=== PATIENT | female | born 1985 | race Caucasian/White ===

== ENCOUNTER 2018-07-07 13:36 | Observation (INO) | payer OTHER ==
--- OUTSIDE RECORDS SUMMARY | 2018-07-07 13:42 | XMS REPORT ---
:1985 [facility] Address [address] [place] [address] Dr. Treviño [address] [place] [id number] Care Team Providers Name Role Phone Unavailable Unavailable Unavailable Problems This patient has no known problems. Allergies, Adverse Reactions, Alerts This patient has no known allergies or adverse reactions. Medications This patient has no known medications.
[2018-07-07 15:12] LABS: Urine Blood TRACE (NEG); Urine Glucose NEGATIVE (NEG); Urine Protein NEGATIVE (NEG); Urine Specific Gravity 1.025 (1.005-1.030)
[2018-07-07 16:07] LABS: Absolute Lymphocytes (CBC) 3.2 K/uL (0.7-4.9); Absolute Monocytes 0.8 K/uL (0.1-1.3); Absolute Neutrophil 5.7 K/uL (1.8-8.0); Basophils % 0.9 % (0-1.3); Hematocrit 46.9 % (36.0-45.0); Lymphocytes % 31.4 % (15.3-44.8); MPV 10.4 fL (7.6-11.3); Monocytes % 7.9 % (3.3-12.3); RBC Red Blood Cell Count 5.13 M/uL (3.86-4.86)
[2018-07-07] MEDS ORDERED: ONDANSETRON 4 MG/2 ML VIAL ONE (16:17)
[2018-07-07] MEDS ORDERED: MORPHINE 4 MG/ML SYR ONE ×3 (16:17→21:41)
[2018-07-07 16:22] LABS: ALT/SGPT 20 U/L (12-78); AST/SGOT 12 U/L (15-37); Albumin 3.8 g/dL (3.4-5.0); Alkaline Phosphatase 71 U/L (45-117); BUN Blood Urea Nitrogen 8 mg/dL (7-18); Bicarbonate 25 mmol/L (21-32); Bilirubin Direct < 0.1 mg/dL (0-0.2); Bilirubin Total 0.2 mg/dL (0.2-1.0); Glucose Level 84 mg/dL (74-106); Lipase 136 U/L (73-393); Potassium 3.9 mmol/L (3.5-5.1); Protein, Total 7.6 g/dL (6.4-8.2); Sodium Level 137 mmol/L (136-145)
--- NOTE | 2018-07-07 17:14 | RAD REPORT ---
EXAM DESCRIPTION: CT - Abdomen Pelvis W Contrast - 07/07/2018 4:42 pm CLINICAL HISTORY: Right-sided abdominal pain, right lower quadrant pain prior cholecystectomy COMPARISON: CT imaging December 2015 and October 2015 TECHNIQUE: Biphasic, helical CT imaging of the abdomen and pelvis was performed following 100 ml non -ionic IV contrast. No oral contrast administered. All CT scans are performed using dose optimization technique as appropriate and may include automated exposure control or mA/KV adjustment according to patient size. FINDINGS: No suspicious findings in the lung bases. The liver, spleen, and pancreas show no suspicious findings. Gallbladder is absent. No biliary tree d ilatation. Symmetric renal function is seen with no hydronephrosis or suspicious renal mass. No pyelonephritis o r acute parenchymal process. No bladder abnormalities. No adrenal abnormalities. No gastric dilatation, wall thickening or acute gastric finding. Patient has a minimal hiatal hernia. A few small bowel loops are prominent but no small bowel obstruction or mass identifiable. Small bow el enteritis is possible. Patient has a prominent, fatty ileocecal valve projecting into the lumen of the cecum. Terminal ileum extends 1-2 cm into the lumen. Findings at the Lugol's cecal valve are not substantially different back to 2016. Appendix is normal. No colitis or acute colon wall process andrew ntifiable. Patient has moderate stool volume in the transverse and left side colon. No free air, free fluid or inflammatory stranding. No hernia, mass or bulky lymphadenopathy. Uterus and right ovary show no suspicious findings. Left ovary contains a 3.3 centimeter cyst. No suspicious bony findings. IMPRESSION: No bowel obstruction, appendicitis, free air or surgically emergent finding. Prominent small bowel loops are present and the patient may have a nonspecific enteritis. Prominent fatty ileocecal valve projecting into the lumen of the cecum. There is probably laxity at t he ileocecal valve and the patient may have minimal or transient intussusception. Ileocecal valve findings are not considered emergent or obstructive. Pattern is not substantially dif ferent from comparison studies.
--- NOTE | 2018-07-07 18:48 | EDPHYS ---
Physician Documentation [facility] Name: Jo Stover Age: 33 yrs Sex: Female : 1985 Arrival Date: 07/07/2018 Time: 13:39 Bed 17 Private MD: Benito Bland ED Physician Arthur Huertas HPI: 07/08 08:26 This 33 yrs old Female presents to ER via Ambulatory with complaints of kdr Abdominal Pain, Bloody Stools. 08:26 The patient presents with abdominal pain right - lateral to umbilicus. Onset: The kdr symptoms/episode began/occurred yesterday. The symptoms do not radiate. Associated signs and symptoms: Pertinent positives: blood in stools, nausea, Pertinent negatives: constipation, dysuria, fever, headache, hematuria, palpitations, shortness of breath, vaginal discharge, vomiting, vomiting blood. The symptoms are described as achy, crampy, intermittent, sharp, stabbing. Modifying factors: The symptoms are alleviated by nothing, the symptoms are aggravated by walking. Severity of pain: At its worst the pain was moderate in the emergency department the pain has improved. The patient has not experienced similar symptoms in the past. The patient has not recently seen a physician. 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 - Social history:: Smoking status: Patient uses tobacco products, Patient/guardian denies using alcohol. - Ebola Screening: : Patient negative for fever greater than or equal to 101.5 degrees Fahrenheit, and additional compatible Ebola Virus Disease symptoms Patient denies exposure to infectious person Patient denies travel to an Ebola-affected area in the 21 days before illness onset. ROS: 07/08 08:26 Constitutional: Negative for fever, chills, and weight loss, Eyes: Negative for injury, kdr pain, redness, and discharge, Neck: Negative for injury, pain, and swelling, Cardiovascular: Negative for chest pain, palpitations, and edema, Respiratory: Negative for shortness of breath, cough, wheezing, and pleuritic chest pain, Back: Negative for injury and pain, : Negative for injury, bleeding, discharge, and swelling, MS/Extremity: Negative for injury and deformity, Skin: Negative for injury, rash, and discoloration, Neuro: Negative for headache, weakness, numbness, tingling, and seizure activity. Psych: Negative for depression, anxiety, suicide ideation, homicidal ideation, and hallucinations, Allergy/Immunology: Negative for hives, rash, and allergies, Endocrine: Negative for neck swelling, polydipsia, polyuria, polyphagia, and marked weight changes, Hematologic/Lymphatic: Negative for swollen nodes, abnormal bleeding, and unusual bruising. Abdomen/GI: Positive for abdominal pain, nausea, Negative for diarrhea, constipation, abdominal cramps, abdominal distension, anorexia, dysphagia, hematemesis, black/tarry stool, rectal pain, bowel incontinence, flatulence. Exam: 08:26 Constitutional: This is a well developed, well nourished patient who is awake, alert, kdr and in no acute distress. Head/Face: Normocephalic, atraumatic. Eyes: Pupils equal round and reactive to light, extra-ocular motions intact. Lids and lashes normal. Conjunctiva and sclera are non-icteric and not injected. Cornea within normal limits. Periorbital areas with no swelling, redness, or edema. Neck: Trachea midline, no thyromegaly or masses palpated, and no cervical lymphadenopathy. Supple, full range of motion without nuchal rigidity, or vertebral point tenderness. No Meningismus. Chest/axilla: Normal chest wall appearance and motion. Nontender with no deformity. No lesions are appreciated. Cardiovascular: Regular rate and rhythm with a normal S1 and S2. No gallops, murmurs, or rubs. Normal PMI, no JVD. No pulse deficits. Respiratory: Lungs have equal breath sounds bilaterally, clear to auscultation and percussion. No rales, rhonchi or wheezes noted. No increased work of breathing, no retractions or nasal flaring. Back: No spinal tenderness. No costovertebral tenderness. Full range of motion. 08:26 Abdomen/GI: Inspection: abdomen appears normal, Bowel sounds: active, Palpation: Rectal exam: Vital Signs: 07/07 13:51 BP 134 / 83; Pulse 89; Resp 18; Temp 97.0(TE); Pulse Ox 100% on R/A; Weight 90.72 kg; hj Height 5 ft. 7 in. (170.18 cm); Pain 8/10; 14:57 BP 146 / 105; Pulse 84; Resp 14; Pulse Ox 99% ; bp 16:43 BP 150 / 89; Pulse 75; Resp 14; Pulse Ox 99% ; bp 17:35 BP 128 / 94; Pulse 76; Resp 14; Pulse Ox 98% ; bp 18:42 BP 117 / 64; Pulse 71; Resp 14; Pulse Ox 98% ; bp 19:14 BP 133 / 89; Pulse 72; Resp 16 S; Pulse Ox 99% on R/A; jd3 20:19 BP 118 / 88; Pulse 64; Resp 16 S; Pulse Ox 98% on R/A; jd3 13:51 Body Mass Index 31.32 (90.72 kg, 170.18 cm) hj MDM: 18:47 Patient medically screened. kdr 07/08 08:26 Data reviewed: vital signs, nurses notes, lab test result(s), radiologic studies. kdr Counseling: I had a detailed discussion with the patient and/or guardian regarding: the historical points, exam findings, and any diagnostic results supporting the discharge/admit diagnosis, lab results, radiology results, the need for further work-up and treatment in the hospital. Physician consultation: Ignacio White MD and will see patient in inpatient room, later today. 07/07 15:01 Order name: Urine Dipstick--Ancillary (enter results); Complete Time: 17: 07/07 15:01 Order name: Urine --Ancillary (enter results); Complete Time: 17: 07/07 15:11 Order name: Basic Metabolic Panel; Complete Time: 17: kdr 07/07 15:11 Order name: CBC with Diff; Complete Time: 17: [facility] 07/07 15:11 Order name: Creatinine for Radiology; Complete Time: 17: kdr 07/07 15:11 Order name: Hepatic Function; Complete Time: 17: kdr 07/07 15:11 Order name: Lipase; Complete Time: 17: [facility] 07/07 15:25 Order name: CT Abd/Pelvis - W/Contrast; Complete Time: 18:04 kdr 07/07 13:54 Order name: Urine Dipstick-Ancillary (obtain specimen); Complete Time: 14:54 07/07 13:54 Order name: Urine Test (obtain specimen); Complete Time: 14:54 hj 07/07 15:11 Order name: IV Saline Lock; Complete Time: 15:48 kdr 07/07 15:11 Order name: Labs collected and sent; Complete Time: 15:48 kdr Administered Medications: 07/07 16:09 Drug: Zofran 4 mg Route: IVP; Site: right upper arm; jl7 16:44 Follow up: Response: Pain is decreased bp 16:13 Drug: morphine 4 mg Route: IVP; Site: right upper arm; jl7 16:44 Follow up: Response: Pain is decreased bp 17:02 Drug: morphine 4 mg Route: IVP; Site: right upper arm; bp 18:39 Follow up: Response: Pain is decreased bp 19:02 Drug: Flagyl 500 mg Route: PO; bp 20:21 Follow up: Response: No adverse reaction jd3 19:03 Drug: Cipro 500 mg Route: PO; bp 20:21 Follow up: Response: No adverse reaction jd3 19:03 Drug: NS 0.9% 1000 ml Route: IV; Rate: 1 bolus; Site: right upper arm; bp 20:21 Follow up: Response: No adverse reaction; IV Status: Completed infusion jd3 19:03 Drug: fentaNYL (PF) 50 mcg Route: IVP; Site: right upper arm; bp 20:21 Follow up: Response: No adverse reaction jd3 Disposition: 07/07/18 18:47 Hospitalization ordered by Dimas Massey for Observation. Preliminary diagnosis are Abdominal and pelvic pain, Enteritis: . - Bed requested for Telemetry/MedSurg (observation). - Status is Observation. jd3 - Condition is Fair. - Problem is new. - Symptoms have improved. UTI on Admission? No Signatures: Dispatcher [employer] EDMS Cortney Cerna RN RN Arthur Huertas MD MD kdr Joaquin, Henry, RN RN hj Leal, Jahala, RN RN jl7 Davies, Jonathon, RN RN jEdison Bustos RN RN bp Corrections: (The following items were deleted from the chart) 19:50 18:47 Hospitalization Ordered by Dimas Massey MD for Observation. Preliminary diagnosis mw is Abdominal and pelvic pain; Enteritis: . Bed requested for Telemetry/MedSurg (observation). Status is Observation. Condition is Fair. Problem is new. Symptoms have improved. UTI on Admission? No. kdr 20:40 19:50 07/07/2018 18:47 Hospitalization Ordered by Dimas Massey MD for Observation. jd3 Preliminary diagnosis is Abdominal and pelvic pain; Enteritis: . Bed requested for Telemetry/MedSurg (observation). Status is Observation. Condition is Fair. Problem is new. Symptoms have improved. UTI on Admission? No. mw
--- NOTE | 2018-07-07 18:48 | ER ---
Nurse's Notes 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 Transition of care: patient was not received from another setting of care. Onset of symptoms was July 07, 2018. Risk Assessment: Do you want to hurt yourself or someone else? Patient reports no desire to harm self or others. Initial Sepsis Screen: Does the patient meet any 2 criteria? No. Patient's initial sepsis screen is negative. Does the patient have a suspected source of infection? No. Patient's initial sepsis screen is negative. Care prior to arrival: None. 13:48 Method Of Arrival: Ambulatory 13:48 Acuity: EVA 3 hj Triage Assessment: 13:50 General: Appears in no apparent distress. uncomfortable, Behavior is calm, cooperative, hj appropriate for age. Pain: Complains of pain in abdomen. GI: Reports upper abdominal pain, nausea. 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 - Social history:: Smoking status: Patient uses tobacco products, Patient/guardian denies using alcohol. - Ebola Screening: : Patient negative for fever greater than or equal to 101.5 degrees Fahrenheit, and additional compatible Ebola Virus Disease symptoms Patient denies exposure to infectious person Patient denies travel to an Ebola-affected area in the 21 days before illness onset. Screenin:51 Abuse screen: Denies threats or abuse. Denies injuries from another. Nutritional hj screening: No deficits noted. Tuberculosis screening: No symptoms or risk factors identified. Fall Risk None identified. Assessment: 13:51 GI: Bowel sounds present X 4 quads. Abd is soft. hj 14:54 General: Appears in no apparent distress. comfortable, Behavior is cooperative, bp appropriate for age, anxious. Pain: Complains of pain in abdomen. Neuro: Level of Consciousness is awake, alert, obeys commands, Oriented to person, place, time, situation, Appropriate for age. Cardiovascular: No deficits noted. Respiratory: Airway is patent Respiratory effort is even, unlabored, Respiratory pattern is regular, symmetrical. GI: Abdomen is non-distended, Bowel sounds present X 4 quads. Abd is soft X 4 quads. : No signs and/or symptoms were reported regarding the genitourinary system. EENT: No deficits noted. Derm: No deficits noted. Musculoskeletal: Circulation, motion, and sensation intact. Range of motion: intact in all extremities. 16:30 Reassessment: PT TO CT VIA W/C WITH TECH. bp 17:35 Reassessment: ALL CURRENT STUDIES COMPLETED, DISPO PENDING. NO ACUTE S/S AT THIS TIME. bp 18:40 Reassessment: ALL CURRENT STUDIES COMPLETED, DISPO PENDING. bp 19:13 Reassessment: Patient appears in no apparent distress at this time. No changes from jd3 previously documented assessment. Patient and/or family updated on plan of care and expected duration. Pain level reassessed. Patient is alert, oriented x 3, equal unlabored respirations, skin warm/dry/pink. awaiting bed placement. 20:19 Reassessment: Patient appears in no apparent distress at this time. No changes from jd3 previously documented assessment. Patient and/or family updated on plan of care and expected duration. Pain level reassessed. Patient is alert, oriented x 3, equal unlabored respirations, skin warm/dry/pink. 20:39 Reassessment: Patient appears in no apparent distress at this time. Patient and/or jd3 family updated on plan of care and expected duration. Pain level reassessed. Patient is alert, oriented x 3, equal unlabored respirations, skin warm/dry/pink. 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 Vital Signs: 13:51 BP 134 / 83; Pulse 89; Resp 18; Temp 97.0(TE); Pulse Ox 100% on R/A; Weight 90.72 kg; hj Height 5 ft. 7 in. (170.18 cm); Pain 8/10; 14:57 BP 146 / 105; Pulse 84; Resp 14; Pulse Ox 99% ; bp 16:43 BP 150 / 89; Pulse 75; Resp 14; Pulse Ox 99% ; bp 17:35 BP 128 / 94; Pulse 76; Resp 14; Pulse Ox 98% ; bp 18:42 BP 117 / 64; Pulse 71; Resp 14; Pulse Ox 98% ; bp 19:14 BP 133 / 89; Pulse 72; Resp 16 S; Pulse Ox 99% on R/A; jd3 20:19 BP 118 / 88; Pulse 64; Resp 16 S; Pulse Ox 98% on R/A; jd3 13:51 Body Mass Index 31.32 (90.72 kg, 170.18 cm) hj ED Course: 13:39 Patient arrived in ED. mr 13:39 Benito Bland MD is Private Physician. mr 13:50 Triage completed. hj 13:51 Arm band placed on right wrist. hj 13:52 Patient has correct armband on for positive identification. Placed in gown. Bed in low hj position. Call light in reach. Side rails up X 1. 14:42 Arthur Huertas MD is Attending Physician. kdr 14:47 Edison Chao, KRISTIAN is Primary Nurse. bp 15:38 Radiology exam delayed due to lab results not completed at this time. (BUN/Creatinine). vm2 15:39 Radiology exam delayed due to test not completed at this time. vm2 15:41 Radiology exam delayed due to lab results not completed at this time. (BUN/Creatinine). vm2 15:48 Inserted saline lock: 20 gauge in right upper arm, using aseptic technique. Blood bp collected. 16:10 Radiology exam delayed due to lab results not completed at this time. (BUN/Creatinine). nj 16:[address] via wheelchair. sj 16:40 CT completed. Patient tolerated procedure well. Patient moved back from CT. nj 16:43 CT Abd/Pelvis - W/Contrast In Process Unspecified. EDMS 18:41 Dimas Massey MD is Hospitalizing Provider. kdr 20:20 No provider procedures requiring assistance completed. Patient admitted, IV remains in jd3 place. Administered Medications: 16:09 Drug: Zofran 4 mg Route: IVP; Site: right upper arm; jl7 16:44 Follow up: Response: Pain is decreased bp 16:13 Drug: morphine 4 mg Route: IVP; Site: right upper arm; jl7 16:44 Follow up: Response: Pain is decreased bp 17:02 Drug: morphine 4 mg Route: IVP; Site: right upper arm; bp 18:39 Follow up: Response: Pain is decreased bp 19:02 Drug: Flagyl 500 mg Route: PO; bp 20:21 Follow up: Response: No adverse reaction jd3 19:03 Drug: Cipro 500 mg Route: PO; bp 20:21 Follow up: Response: No adverse reaction jd3 19:03 Drug: NS 0.9% 1000 ml Route: IV; Rate: 1 bolus; Site: right upper arm; bp 20:21 Follow up: Response: No adverse reaction; IV Status: Completed infusion jd3 19:03 Drug: fentaNYL (PF) 50 mcg Route: IVP; Site: right upper arm; bp 20:21 Follow up: Response: No adverse reaction jd3 Outcome: 18:47 Decision to Hospitalize by Provider. kdr 20:20 Admitted to Med/surg accompanied by tech, via wheelchair, room 210, with chart, Report jd3 called to Hansel TOWNSEND 20:20 Condition: stable 20:20 Instructed on the need for admit, Demonstrated understanding of instructions. 20:40 Patient left the ED. jd3 Signatures: Dispatcher [employer] EDMS Arthur Huertas MD MD kdr Rivera, Ann Marie mr StovallMoira Henry, RN RN hj Jordan, Nathan nj Leal, Jahala, RN RN Sarah Bagley Marvin Hebert RN RN jd3 Peltier, Brian, RN RN bp Corrections: (The following items were deleted from the chart) 13:53 13:51 Pulse 89bpm; Resp 18bpm; Pulse Ox 100% RA; Temp 97.0F Temporal; 90.72 kg; Height hj 5 ft. 7 in.; BMI: 31.3; Pain 8/10; hj
[2018-07-07] MEDS ORDERED: metroNIDAZOLE 500 MG TABLET ONE (19:04)
[2018-07-07] MEDS ORDERED: CIPROFLOXACIN HCL 500 MG TAB ONE (19:04)
[2018-07-07] MEDS ORDERED: NA CHLORIDE 0.9% 1,000 ML ONE (19:05)
[2018-07-07] MEDS ORDERED: FENTANYL CITR 100 MCG/2 ML ONE (19:05)
[2018-07-07] MEDS ORDERED: MORPHINE 2 MG/ML SYR IV PRN (20:14)
[2018-07-07] MEDS: CIPROFLOXACIN 400mg IV 400 MG/200 ML BAG IV SCH (21:00)
[2018-07-07 21:09] VITALS: BMI 33.5
[2018-07-07] MEDS: D5 0.45 NS 1,000 ML IV SCH (21:15)
[2018-07-07] MEDS: ONDANSETRON 4 MG/2 ML VIAL IV PRN (21:35)
[2018-07-08] MEDS: ONDANSETRON 4 MG/2 ML VIAL IV PRN ×5 (02:05→17:54)
[2018-07-08] MEDS: METRONIDAZOLE 500mg IVPB 500 MG/100 ML BAG IV SCH ×3 (02:05→17:54)
[2018-07-08] MEDS ORDERED: MORPHINE 4 MG/ML SYR ONE ×2 (02:09→06:01)
[2018-07-08 05:49] LABS: Potassium 4.4 mmol/L (3.5-5.1)
[2018-07-08] MEDS: CIPROFLOXACIN 400mg IV 400 MG/200 ML BAG IV SCH ×2 (05:57→17:53)
[2018-07-08] MEDS: D5 0.45 NS 1,000 ML IV SCH ×4 (05:57→20:14)
[2018-07-08 06:01] LABS: Absolute Lymphocytes (CBC) 2.1 K/uL (0.7-4.9); Absolute Monocytes 0.6 K/uL (0.1-1.3); Absolute Neutrophil 3.7 K/uL (1.8-8.0); Basophils % 0.2 % (0-1.3); Eosinophils % 4.3 % (0-4.4); Hematocrit 41.8 % (36.0-45.0); Lymphocytes % 31.3 % (15.3-44.8); MPV 10.3 fL (7.6-11.3); Monocytes % 9.6 % (3.3-12.3); RBC Red Blood Cell Count 4.61 M/uL (3.86-4.86)
--- NOTE | 2018-07-08 09:42 | P.HP ---
Certification for Inpatient Patient admitted to: Inpatient With expected LOS: >2 Midnights Patient will require the following post-hospital care: None Practitioner: I am a practitioner with admitting privileges, knowledge of patient current condition, hospital course, and medical plan of care. Services: Services provided to patient in accordance with Admission requirements found in Title 42 Section 412.3 of the Code of Federal Regulations Patient History Date of Service: 07/07/18 Reason for admission: Abdominal pain and lower GI bleeding History of Present Illness: Patient is a 33-year-old female who has been in a normal state of health until she noted she had blood in her stools. She started having some nausea and vomiting as well. Her abdominal pain was really severe in the right lower quadrant and she noticed that her stools were bloody. She initially felt she had hemorrhoids, but since the pain was worsening she decided to come into the hospital for evaluation. In the emergency room she had a CT of the abdomen and pelvis with IV contrast which revealed an intussusception around the cecum. She was admitted to the hospital for further monitoring and evaluation for possible surgical intervention. Allergies No Known Allergies Allergy (Unverified 11/03/15 03:15) Home Medications: Citalopram [Celexa*] 20 mg PO DAILY 07/07/18 LORazepam [Ativan*] 1 mg PO BID PRN 07/07/18 Norethindrone AC-Eth Estradiol [Microgestin 21 1.5-30 Tab] 1 tab PO DAILY - Past Medical/Surgical History Has patient received pneumonia vaccine in the past: No Diabetic: No -: asthma -: anxiety -: c section -: cholecystectomy - Family History Father Medical History: Cancer Notes: pancreactic cancer, 2018 Mother Notes: hypothyroid - Social History Smoking Status: Current every day smoker Alcohol use: No CD- Drugs: No Caffeine use: Yes Place of Residence: Home Review of Systems 10-point ROS is otherwise unremarkable Physical Examination - Vital Signs Temperature: 98.3 F Blood Pressure: 119/57 Pulse: 71 Respirations: 16 Pulse Ox (%): 96 - Physical Exam General: Alert, In no apparent distress, Oriented x3 HEENT: Atraumatic, PERRLA, Mucous membr. moist/pink, EOMI, Sclerae nonicteric Neck: Supple, 2+ carotid pulse no bruit, No LAD, Without JVD or thyroid abnormality Respiratory: Clear to auscultation bilaterally, Normal air movement Cardiovascular: Regular rate/rhythm, Normal S1 S2, No murmurs Gastrointestinal: Normal bowel sounds, Soft and benign, No rebound, No guarding , Distended, Tenderness Musculoskeletal: No clubbing, No swelling, No tenderness Integumentary: No rashes Neurological: Normal gait, Normal speech, Normal strength at 5/5 x4 extr, Normal tone, Sensation intact, Cranial nerves 3-12 intact, Normal affect Lymphatics: No axilla or inguinal lymphadenopathy - Studies Laboratory Data (last 24 hrs) 07/07/18 15:45: Creatinine 0.68 07/07/18 15:45: WBC 10.1, Hgb 15.8 H, Hct 46.9 H, Plt Count 240 07/07/18 15:45: Sodium 137, Potassium 3.9, BUN 8, Creatinine 0.77, Glucose 84, Total Bilirubin 0.2, AST 12 L, ALT 20, Alkaline Phosphatase 71, Lipase 136 Assessment & Plan - Problems (Diagnosis) (1) Acute abdominal pain Current Visit: Yes Status: Acute (2) Intussusception Current Visit: Yes Status: Acute (3) Intractable nausea and vomiting Current Visit: Yes Status: Acute (4) Lower GI bleeding Current Visit: Yes Status: Acute - Plan 1. Continue with IV hydration 2. Continue with IV antibiotics 3. Continue with pain control 4. NPO 5. General surgery consultation 6. Monitor LFTs and lipase along with electrolytes and serial H&H. 7. GI and DVT prophylaxis Discharge Plan: Home Plan to discharge in: Greater than 2 days - Advance Directives Does patient have a Living Will: No Does patient have a Durable POA for Healthcare: No - Code Status/Comfort Care Code Status Assessed: Yes Code Status: Full Code Critical Care: No Time Spent Managing PTS Care (In Minutes): 50
[2018-07-08] MEDS: ACETAMINOPHEN 500 MG TAB PO PRN ×2 (09:57→19:28)
[2018-07-08] MEDS: MORPHINE 4 MG/ML SYR IV PRN ×3 (10:02→17:54)
--- NOTE | 2018-07-08 13:13 | P.PN ---
Subjective Date of Service: 07/08/18 Chief Complaint: Abdominal pain and lower GI bleeding Subjective: No new changes, No C/O voiced, Improving Patient seen and examined at bedside. No family at bedside. Chart reviewed and case discussed with nursing staff. Complaining of intermittent nausea, though abdominal pain much improved. Review of Systems 10-point ROS is otherwise unremarkable Physical Examination - Vital Signs Temperature: 97.2 F Blood Pressure: 131/77 Pulse: 62 Respirations: 16 Pulse Ox (%): 98 - Physical Exam General: Alert, In no apparent distress, Oriented x3, Obese HEENT: Atraumatic, PERRLA, EOMI Neck: Supple, JVD not distended Respiratory: Clear to auscultation bilaterally, Normal air movement Cardiovascular: Regular rate/rhythm, Normal S1 S2 Gastrointestinal: Normal bowel sounds, Tenderness (mild tenderness, diffuse) Musculoskeletal: No tenderness Integumentary: No rashes Neurological: Normal speech, Normal tone, Normal affect Lymphatics: No axilla or inguinal lymphadenopathy - Studies Laboratory Data (last 24 hrs) 07/07/18 15:45: Creatinine 0.68 07/07/18 15:45: WBC 10.1, Hgb 15.8 H, Hct 46.9 H, Plt Count 240 07/07/18 15:45: Sodium 137, Potassium 3.9, BUN 8, Creatinine 0.77, Glucose 84, Total Bilirubin 0.2, AST 12 L, ALT 20, Alkaline Phosphatase 71, Lipase 136 Assessment And Plan - Current Problems (Diagnosis) (1) Acute abdominal pain Current Visit: Yes Status: Acute (2) Enteritis Current Visit: Yes Status: Acute (3) Intussusception Current Visit: Yes Status: Acute (4) Intractable nausea and vomiting Current Visit: Yes Status: Acute (5) Lower GI bleeding Current Visit: Yes Status: Acute (6) Obesity (BMI 30.0-34.9) Current Visit: No Status: Chronic - Plan This is a 33 year old female with: Acute abdominal pain (Acute) R10.9 Enteritis (Acute) K52.9 Intussusception (Acute) K56.1 Intractable nausea and vomiting (Acute) R11.2 Lower GI bleeding (Acute) K92.2 - Resolved Continue NPO, IVF, Pain control General surgery consulted, pending. If continues to improved clinically, will start clear liquid diet and advance as tolerated. Zofran prn for nausea Obesity (BMI 30.0-34.9) (Acute) E66.9 DVT prophylaxis: Lovenox GI prophylaxis: Not needed Diet: NPO Disposition: Pending symptomatic improvement and surgery recommendations. Physician Review: Patient Assessed, Agree with Above Assessment and Plan Time Spent Managing PTS Care (In Minutes): 35
--- NOTE | 2018-07-08 15:54 | CON ---
Date of Consultation: 07/08/2018 Diagnosis: Enteritis. History Of Present Illness: This is the case of a 33-year-old patient, who comes complaining of naus ea, vomiting, and abdominal pain since yesterday. 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 She denies any recent traveling out of the country. Denies any family member sick at ahsan e. Denies eating anything out of the usual. Allergies: NONE. Medications: Celexa, Ativan, hormones. Past Medical History: Include asthma and anxiety. Past Surgical History: Include cholecystectomy and . Family History: Hyperthyroid. Social Habits: She has smoked occasionally. She does not drink alcohol. Review of Systems: Ten points, otherwise points, otherwise unremarkable. Physical Examination: General: The patient is awake and alert. HEENT: Pupils are equal and reactive, anicteric. Neck: Supple. Chest: Clear. Abdomen: Soft and depressible. No guarding, rebound, or peritoneal signs. Mild generalized tendern ess but no guarding or rebound. Pelvic/Rectal/Breasts: Deferred. Extremities: Good capillary refill. Laboratory Data: Blood work shows WBC count of 10.1, hemoglobin of 15.8, potassium is 4.4, glucose [address] scan of the abdomen and pelvis shows enteritis. The patient has some findings in the ileocec al valve, explained this was the same as 2 years ago, prominent ileocecal valve. Plan: The patient will start with full liquid diet. Follow stool for ova and parasites. She should have a followup with the trolley wire installer were eventually they may have to even do a colonoscopy t o inspect the area of ileocecal valve, at the same time, to rule out any autoimmune disease like infl ammatory bowel disease and specifically Crohn disease if she does not improve. JAVI/JOYCE Voice ID: [id number] Report ID: [id number]
[2018-07-08 21:19] VITALS: O2SAT 97
[2018-07-09] MEDS: ONDANSETRON 4 MG/2 ML VIAL IV PRN ×3 (00:13→11:52)
[2018-07-09] MEDS: MORPHINE 4 MG/ML SYR IV PRN ×2 (00:13→06:20)
[2018-07-09] MEDS: D5 0.45 NS 1,000 ML IV SCH ×2 (00:14→11:52)
[2018-07-09] MEDS: METRONIDAZOLE 500mg IVPB 500 MG/100 ML BAG IV SCH ×2 (03:38→10:36)
[2018-07-09] MEDS: CIPROFLOXACIN 400mg IV 400 MG/200 ML BAG IV SCH (06:15)
[2018-07-09] MEDS ORDERED: CITALOPRAM 10 MG TABLET PO SCH (09:00)
[2018-07-09 09:01] VITALS: TEMP 97.6
[2018-07-09] MEDS ORDERED: TRAMADOL HCL 50 MG TAB PO PRN (12:19)
[2018-07-09 12:24] VITALS: BP 142/81
--- NOTE | 2018-07-09 19:11 | P.SSS ---
Patient History Date of Service: 07/09/18 Primary Care Provider: Dr. Bland Reason for admission: Abdominal pain and lower GI bleeding History of Present Illness: Patient is a 33-year-old female who has been in a normal state of health until she noted she had blood in her stools. She started having some nausea and vomiting as well. Her abdominal pain was really severe in the right lower quadrant and she noticed that her stools were bloody. She initially felt she had hemorrhoids, but since the pain was worsening she decided to come into the hospital for evaluation. In the emergency room she had a CT of the abdomen and pelvis with IV contrast which revealed an intussusception around the cecum. She was admitted to the hospital for further monitoring and evaluation for possible surgical intervention. Allergies No Known Allergies Allergy (Unverified 11/03/15 03:15) Home Medications: Citalopram [Celexa*] 20 mg PO DAILY 07/07/18 LORazepam [Ativan*] 1 mg PO BID PRN 07/07/18 Norethindrone AC-Eth Estradiol [Microgestin 21 1.5-30 Tab] 1 tab PO DAILY Ciprofloxacin HCl 500 mg PO BID #10 tablet 07/09/18 Ondansetron [Zofran] 4 mg PO Q6H PRN #15 tab 07/09/18 metroNIDAZOLE [Flagyl] 500 mg PO Q8H #15 tablet 07/09/18 traMADol HCL [Ultram*] 50 mg PO Q6H PRN #10 tab 07/09/18 - Past Medical/Surgical History Has patient received pneumonia vaccine in the past: No Diabetic: No -: asthma -: anxiety -: c section -: cholecystectomy - Family History Father -: Cancer Notes: pancreactic cancer, 2018 Mother Notes: hypothyroid - Social History Smoking Status: Current every day smoker Alcohol use: No CD- Drugs: No Caffeine use: Yes Place of Residence: Home Review of Systems 10-point ROS is otherwise unremarkable Physical Examination - Vital Signs Temperature: 97.6 F Blood Pressure: 142/81 Pulse: 69 Respirations: 14 Pulse Ox (%): 96 - Physical Exam General: Alert, In no apparent distress HEENT: Atraumatic, PERRLA, Mucous membr. moist/pink, EOMI, Sclerae nonicteric Neck: Supple, 2+ carotid pulse no bruit, No LAD, Without JVD or thyroid abnormality Respiratory: Clear to auscultation bilaterally, Normal air movement Cardiovascular: Regular rate/rhythm, Normal S1 S2 Gastrointestinal: Normal bowel sounds, No tenderness Musculoskeletal: No tenderness Integumentary: No rashes Neurological: Normal gait, Normal speech, Normal strength at 5/5 x4 extr, Normal tone, Normal affect Lymphatics: No axilla or inguinal lymphadenopathy - Diagnosis (Problem(s)) (1) Acute abdominal pain Status: Acute (2) Enteritis Status: Acute (3) Intussusception Status: Acute (4) Intractable nausea and vomiting Status: Acute (5) Lower GI bleeding Status: Acute (6) Obesity (BMI 30.0-34.9) Status: Chronic Treatment Summary: Foster was admitted for acute abdominal pain, and redness and possible intussusception. CT scan of the abdomen reviewed, intussusception seems to be unchanged from prior studies. Patient was kept NPO, IV fluids were given and pain control. General surgery was consulted, recommended medical conservative treatment at this time. Patient improved clinically, she was started on clear liquid diet, which she tolerated. Patient was then discharged home in a stable manner with instructions to continue GI soft/full liquids for the next couple of days. She was instructed to follow up with her primary care physician in 1 week. She was also given information for outpatient gastroenterology to follow up for outpatient colonoscopy in for further evaluation. Diagnoses/symptoms were explained to patient, all questions were answered and patient verbalized understanding. At the time of discharge, she was tolerating a soft/full liquid diet, hemodynamically stable and ambulating without any concerns. She was also given prescription for her Zofran, tramadol, ciprofloxacin and Flagyl. - Disposition Condition: GOOD Consultations: General surgery, Dr. White Patient Discharge Instructions: Please follow up with your primary care physician in 1-2 weeks. Prescription for zofran and tramadol as needed has been sent to your pharmacy. Diet: Liquid/GI soft, advance as tolerated Activity: Ad earle Physician Review: Patient Assessed, Agree with Above Assessment and Plan Time Spent Managing Pts Care (In Minutes): 55
== END 2018-07-09 15:30 | disposition home or self-care (01) ==
LOC: ER 13:36 → ERHOLD 18:42 → INTOOBSV 18:42 → 2ND 20:30
PROVIDERS: ADMIT Family Medicine; ATTEND Hospitalist
DX: K52.9 Noninfective gastroenteritis and colitis, unspecified (principal); K56.1 Intussusception; K92.1 Melena; J45.909 Unspecified asthma, uncomplicated; E66.9 Obesity, unspecified; Z68.33 Body mass index [BMI] 33.0-33.9, adult; F17.210 Nicotine dependence, cigarettes, uncomplicated
CPT/HCPCS: 36415; 74177; 80048; 80076; 81003; 81025; 83690; 85025; 87177; 87209; 94760; 96361; 96374; 96375; 99285; G0378; J0744; J2405; J3010; J7030; Q9967

== ENCOUNTER 2018-12-29 07:20 | Emergency (ER) | payer OTHER ==
--- OUTSIDE RECORDS SUMMARY | 2018-12-29 07:27 | XMS REPORT ---
:1985 [facility] Address [address] [place] [address] Dr. Treviño [address] [place] [id number] Care Team Providers Name Role Phone Unavailable Unavailable Unavailable Problems This patient has no known problems. Allergies, Adverse Reactions, Alerts This patient has no known allergies or adverse reactions. Medications This patient has no known medications.
--- NOTE | 2018-12-29 07:59 | ER ---
Nurse's Notes [facility] Name: Jo Stover Age: 33 yrs Sex: Female : 1985 Arrival Date: 12/29/2018 Time: 07:24 Bed 20 Private MD: Benito Bland Diagnosis: Low back pain;Radiculopathy, lumbosacral region Presentation: 12/29 07:34 Presenting complaint: Patient states: R low back paint that radiates down R leg that ss began 2 days ago, but is getting worse. Denies injury. Transition of care: patient was not received from another setting of care. Onset of symptoms was December 27, 2018. Risk Assessment: Do you want to hurt yourself or someone else? Patient reports no desire to harm self or others. Initial Sepsis Screen: Does the patient meet any 2 criteria? No. Patient's initial sepsis screen is negative. Does the patient have a suspected source of infection? No. Patient's initial sepsis screen is negative. Care prior to arrival: None. 07:34 Method Of Arrival: Ambulatory ss 07:34 Acuity: EVA 4 ss Triage Assessment: 07:42 General: Appears in no apparent distress. uncomfortable, Behavior is calm, cooperative, hj appropriate for age. Pain: Complains of pain in back. Musculoskeletal: Circulation, motion, and sensation intact. Reports pain in back. 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 - Social history:: Smoking status: Patient/guardian denies using tobacco. - Ebola Screening: : Patient denies exposure to infectious person Patient denies travel to an Ebola-affected area in the 21 days before illness onset. - Family history:: not pertinent. - Hospitalizations: : No recent hospitalization is reported. Screenin:42 Abuse screen: Denies threats or abuse. Denies injuries from another. Nutritional hj screening: No deficits noted. Tuberculosis screening: No symptoms or risk factors identified. Fall Risk None identified. Assessment: 07:34 General: Appears in no apparent distress. uncomfortable, Behavior is calm, cooperative, hj appropriate for age. Pain: Complains of pain in back. Neuro: Level of Consciousness is awake, alert, obeys commands, Oriented to person, place, time, situation, Appropriate for age. Cardiovascular: Capillary refill < 3 seconds Patient's skin is warm and dry. Respiratory: Airway is patent Respiratory effort is even, unlabored, Respiratory pattern is regular, symmetrical. GI: No signs and/or symptoms were reported involving the gastrointestinal system. : No signs and/or symptoms were reported regarding the genitourinary system. EENT: No signs and/or symptoms were reported regarding the EENT system. Derm: No signs and/or symptoms reported regarding the dermatologic system. Musculoskeletal: Circulation, motion, and sensation intact. Reports pain in back. 08:26 Reassessment: Patient and/or family updated on plan of care and expected duration. Pain hj level reassessed. Patient is alert, oriented x 3, equal unlabored respirations, skin warm/dry/pink. D/C instructions given; Patient states feeling better. Vital Signs: 07:34 BP 142 / 96; Pulse 85; Resp 16; Temp 97.4(TE); Pulse Ox 99% on R/A; ss ED Course: 07:24 Patient arrived in ED. mr 07:24 Skip Pickett MD is Attending Physician. rn 07:25 Benito Bland MD is Private Physician. mr 07:34 Arm band placed on right wrist. ss 07:37 Triage completed. ss 07:40 Ignacio Lipscomb RN is Primary Nurse. hj 07:43 Patient has correct armband on for positive identification. Placed in gown. Bed in low hj position. Call light in reach. Side rails up X 1. Adult w/ patient. 08:25 No provider procedures requiring assistance completed. Patient did not have IV access hj during this emergency room visit. Administered Medications: 08:04 Drug: Decadron 10 mg Route: IM; Site: left deltoid; hj 08:05 Follow up: Response: No adverse reaction hj 08:04 Drug: TORadol 30 mg Route: IM; Site: right deltoid; hj 08:05 Follow up: Response: No adverse reaction hj 08:04 Drug: Flexeril 10 mg Route: PO; hj 08:05 Follow up: Response: No adverse reaction hj Outcome: 07:58 Discharge ordered by . rn 08:25 Discharged to home ambulatory. gerry 08:25 Condition: stable 08:25 Discharge instructions given to patient, Instructed on discharge instructions, follow up and referral plans. medication usage, Demonstrated understanding of instructions, follow-up care, medications, Prescriptions given X 3. 08:26 Patient left the ED. Signatures: Ann Marie Cain Roman, MD MD rn Smirch, Shelby, RN RN Ignacio Lipscomb RN RN
--- NOTE | 2018-12-29 08:02 | EDPHYS ---
Physician Documentation [facility] Name: Jo Stover Age: 33 yrs Sex: Female : 1985 Arrival Date: 12/29/2018 Time: 07:24 Bed 20 Private MD: Benito Bland ED Physician Skip Pickett HPI: 12/29 07:53 This 33 yrs old Female presents to ER via Ambulatory with complaints of Back rn Pain, leg numbness. 07:53 The patient presents with pain that is acute. The symptoms are located in the low back. rn Onset: The symptoms/episode began/occurred 2 day(s) ago. The pain radiates to the right leg. Associated signs and symptoms: Pertinent positives: tingling, Pertinent negatives: abdominal pain, fever, hematuria, incontinence, urinary retention, weakness. Modifying factors: The patient symptoms are alleviated by nothing, the patient symptoms are aggravated by. Severity of symptoms: At their worst the symptoms were moderate, in the emergency department the symptoms are unchanged. The patient has not experienced similar symptoms in the past. Reports low back pain, began 2 days ago, intermittent, worse with bending/lifting/twisting, no trauma, never happened before, radiates down right leg with tingling, no weakness, no IV drugs, no bowel/bladder issues, slowly getting worse. . 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 - Social history:: Smoking status: Patient/guardian denies using tobacco. - Ebola Screening: : Patient denies exposure to infectious person Patient denies travel to an Ebola-affected area in the 21 days before illness onset. - Family history:: not pertinent. - Hospitalizations: : No recent hospitalization is reported. ROS: 07:53 Constitutional: Negative for fever, chills, and weight loss, Eyes: Negative for injury, rn pain, redness, and discharge, Neck: Negative for injury, pain, and swelling, Cardiovascular: Negative for chest pain, palpitations, and edema, Respiratory: Negative for shortness of breath, cough, wheezing, and pleuritic chest pain, Abdomen/GI: Negative for abdominal pain, nausea, vomiting, diarrhea, and constipation, Back: + low back pain : Negative for injury, bleeding, discharge, and swelling, MS/Extremity: Negative for injury and deformity, Skin: Negative for injury, rash, and discoloration, Neuro: Negative for headache, weakness, and seizure. Exam: 07:53 Constitutional: This is a well developed, well nourished patient who is awake, alert, rn and in no acute distress. Pt ambulatory to room without difficulty or assistance. Head/Face: Normocephalic, atraumatic. Back: No costovertebral tenderness. Full range of motion. No focal spinal tenderness, + tenderness right perilumbar region. Skin: Warm, dry with normal turgor. Normal color with no rashes, no lesions, and no evidence of cellulitis. MS/ Extremity: Pulses equal, no cyanosis. Neurovascular intact. Full, normal range of motion. Equal circumference. Neuro: Awake and alert, GCS 15, oriented to person, place, time, and situation. Cranial nerves II-XII grossly intact. Motor strength 5/5 in all extremities. Sensory grossly intact. Cerebellar exam normal. Normal gait. Vital Signs: 07:34 BP 142 / 96; Pulse 85; Resp 16; Temp 97.4(TE); Pulse Ox 99% on R/A; ss MDM: 07:25 Patient medically screened. rn 07:53 Differential diagnosis: arthritis, sprain, radiculopathy. Data reviewed: vital signs, rn nurses notes, and as a result, I will discharge patient. Counseling: I had a detailed discussion with the patient and/or guardian regarding: the historical points, exam findings, and any diagnostic results supporting the discharge/admit diagnosis, the need for outpatient follow up, to return to the emergency department if symptoms worsen or persist or if there are any questions or concerns that arise at home. Special discussion: I discussed with the patient/guardian in detail that at this point there is no indication for admission to the hospital. It is understood, however, that if the symptoms persist or worsen the patient needs to return immediately for re-evaluation. Further emergent ED testing is not indicated at this point in time. I discussed with the patient/guardian in detail the need to arrange with the PCP or specialist further outpatient testing, MRI. ED course: Sounds most like lumbar radiculopathy, no spinal cord compression signs or symptoms, no acute trauma, recommend outpt MRI if continues or worsens, for now will treat with prescription meds and f/u. . 12/29 07:56 Order name: Urine Dipstick--Ancillary (enter results); Complete Time: 08:17 bd 12/29 07:56 Order name: Urine --Ancillary (enter results); Complete Time: 08:17 bd 12/29 07:40 Order name: Urine Test (obtain specimen); Complete Time: 07:53 rn Administered Medications: 08:04 Drug: Decadron 10 mg Route: IM; Site: left deltoid; hj 08:05 Follow up: Response: No adverse reaction hj 08:04 Drug: TORadol 30 mg Route: IM; Site: right deltoid; hj 08:05 Follow up: Response: No adverse reaction hj 08:04 Drug: Flexeril 10 mg Route: PO; hj 08:05 Follow up: Response: No adverse reaction hj Disposition: 12/29/18 07:58 Discharged to Home. Impression: Low back pain, Radiculopathy, lumbosacral region. - Condition is Stable. - Discharge Instructions: Back Pain, Adult, Lumbosacral Radiculopathy. - Prescriptions for Tylenol- Codeine #3 300-30 mg Oral Tablet - take 1 tablet by ORAL route every 6 hours As needed; 20 tablet. Cyclobenzaprine 10 mg Oral Tablet - take 1 tablet by ORAL route every 8 hours As needed; 20 tablet. Medrol (Gabe) 4 mg Oral Tablets, Dose Pack - take 1 tablet by ORAL route as directed - follow package instructions; 1 packet. - Medication Reconciliation Form, Thank You Letter, Antibiotic Education, Prescription Opioid Use form. - Follow up: Private Physician; When: As needed; Reason: Recheck today's complaints, Re-evaluation by your physician. - Problem is new. - Symptoms have improved. Signatures: Dispatcher [employer] EDMS Skip Pickett MD MD rn Smirch, Shelby, RN RN ss Joaquin, Henry, RN RN Corrections: (The following items were deleted from the chart) 08:26 07:58 12/29/2018 07:58 Discharged to Home. Impression: Low back pain; Radiculopathy, hj lumbosacral region. Condition is Stable. Forms are Medication Reconciliation Form, Thank You Letter, Antibiotic Education, Prescription Opioid Use. Follow up: Private Physician; When: As needed; Reason: Recheck today's complaints, Re-evaluation by your physician. Problem is new. Symptoms have improved. rn
[2018-12-29 08:13] LABS: Urine Blood TRACE (NEG); Urine Glucose NEGATIVE (NEG); Urine Protein NEGATIVE (NEG); Urine Specific Gravity 1.025 (1.005-1.030)
[2018-12-29] MEDS ORDERED: CYCLOBENZAPRINE 10 MG TAB ONE (08:13)
[2018-12-29] MEDS ORDERED: DEXAMETHASONE 10 MG/ML VIAL ONE (08:13)
[2018-12-29] MEDS ORDERED: KETOROLAC 30 MG/ML INJ ONE (08:13)
[2018-12-29 08:33] VITALS: BP 142/96; TEMP 97.4; O2SAT 99
== END 2018-12-29 08:26 | disposition home or self-care (01) ==
LOC: ER 07:20
DX: M54.17 Radiculopathy, lumbosacral region (principal); F41.9 Anxiety disorder, unspecified
CPT/HCPCS: 81003; 81025; 96372; 99283; J1100

== ENCOUNTER 2019-02-09 22:14 | Emergency (ER) | payer OTHER ==
--- OUTSIDE RECORDS SUMMARY | 2019-02-09 22:34 | XMS REPORT ---
:1985 [facility] Address [address] [place] [address] Dr. Treviño [address] [place] [id number] Care Team Providers Name Role Phone Unavailable Unavailable Unavailable Problems This patient has no known problems. Allergies, Adverse Reactions, Alerts This patient has no known allergies or adverse reactions. Medications This patient has no known medications.
--- OUTSIDE RECORDS SUMMARY | 2019-02-09 22:34 | XMS REPORT | Summary of Care ---
:1985 Author Organization [facility] Address [address] [place] [id number] Care Team Providers Name Role Phone Benito Bland MD Primary Care Provider Reason for Visit Reason Comments Refill Request Encounter Details Date Type Department Care Team Description 02/04/2019 Refill [facility] Family Medicine Benito Bland MD Refill Request - [address] [place] [id number] [place] [phone] Allergies No Known Allergiesdocumented as of this encounter (statuses as of 02/04/2019) Medications Medication Sig Dispensed Refills Start Date End Date Status PROAIR HFA 90 INHALE 2 PUFFS 8.5 Inhaler 0 04/28/2018 Active mcg/actuation EVERY 6 (SIX) inhalerIndications: Mild HOURS NEEDED intermittent asthma FOR WHEEZING OR without complication SHORTNESS OF BREATH. MICROGESTIN 1.5/30 TAKE 1 TABLET 63 tablet 1 06/18/2018 Active 1.5-30 mg-mcg per tablet BY MOUTH DAILY. methylPREDNISolone Take 21 tablets 21 Each 0 07/16/2018 Active (MEDROL, OMAR,) 4 mg by mouth tabletsIndications: SEE-INSTRUCTION Acute left-sided low S. follow back pain without package sciatica directions traMADOL 50 mg Take 1 tablet 20 tablet 0 11/25/2018 Active tabletIndications: Flank by mouth every pain 6 (six) hours as needed for Pain (scale 1-3). losartan 50 mg Take 1 tablet 30 tablet 12 11/25/2018 Active tabletIndications: by mouth daily. Essential hypertension LORazepam 1 mg Take 1 tablet 60 tablet 5 11/25/2018 Active tabletIndications: by mouth 2 Anxiety (two) times daily as needed for Anxiety or Agitation. naproxen (NAPROSYN) 500 Take 1 tablet 20 tablet 0 01/09/2019 Active mg tabletIndications: by mouth 2 Acute midline low back (two) times pain with right-sided daily with sciatica meals. citalopram 20 mg Take 1 tablet 90 tablet 1 01/12/2019 Active tabletIndications: by mouth every Anxiety morning. documented as of this encounter (statuses as of 02/04/2019) Active Problems Problem Noted Date Anxiety 09/09/2015 Migraine 09/09/2015 Attention deficit disorder of adult 09/09/2015 Asthma 09/09/2015 documented as of this encounter (statuses as of 02/04/2019) Social History Tobacco Use Types Packs/Day Years Used Date Current Every Day Smoker 10 Smokeless Tobacco: Never Used Alcohol Use Drinks/Week oz/Week Comments No Sex Assigned at Date Recorded Not on file Job Start Date Occupation Industry Not on file Not on file Not on file Travel History Travel Start Travel End No recent travel history available. documented as of this encounter Last Filed Vital Signs Not on filedocumented in this encounter Plan of Treatment Health Maintenance Due Date Last Done Comments PNEUMOCOCCAL 0-64 YEARS COMBINED SERIES (1 of 1 - 1989 PPSV23) VARICELLA VACCINES (1 of 2 - 13+ 2-dose series) 1996 DTaP,Tdap,and Td Vaccines (1 - Tdap) 2002 INFLUENZA VACCINE 03/08/2019 PAP SMEAR 10/06/2019 10/05/2016 documented as of this encounter Results Not on filedocumented in this encounter Visit Diagnoses Diagnosis Anxiety Anxiety state, unspecified documented in this encounter Insurance Payer Benefit Plan / Group Subscriber ID Effective Dates Phone Address Type AETNA AETNA HMO [id number] 2018-Present HMO AETNA SRC AN AETNA Screen [id number] 2018-Present PPO documented as of this encounter
[2019-02-10 00:46] LABS: Urine Blood NEGATIVE (NEG); Urine Glucose NEGATIVE (NEG); Urine Protein NEGATIVE (NEG); Urine Specific Gravity 1.025 (1.005-1.030); Urine pH 6.5 (5.0-7.0)
[2019-02-10] MEDS ORDERED: ONDANSETRON 4 MG/2 ML VIAL ONE (00:50)
[2019-02-10] MEDS ORDERED: KETOROLAC 30 MG/ML INJ ONE (00:50)
[2019-02-10 00:55] LABS: Potassium 4.1 mmol/L (3.5-5.1)
[2019-02-10 00:57] LABS: Basophils % 0.4 % (0-1.3); Hematocrit 42.9 % (36.0-45.0); Lymphocytes % 30.5 % (15.3-44.8); MPV 10.2 fL (7.6-11.3)
[2019-02-10 01:48] LABS: Urine Culture Reflex Order REFLEXED; Urine RBC <5 /HPF (NONE SEEN)
[2019-02-10 01:49] LABS: Urine Bacteria >50 /HPF (<20)
[2019-02-10] MEDS ORDERED: MORPHINE 4 MG/ML SYR ONE (01:51)
[2019-02-10] MEDS ORDERED: CEFTRIAXONE/SWI 1gm 1 GM/10 ML SYR ONE (01:56)
--- NOTE | 2019-02-10 03:09 | ER ---
Nurse's Notes [facility] Name: Jo Stover Age: 33 yrs Sex: Female : 1985 Arrival Date: 02/09/2019 Time: 22:18 Bed 10 Private MD: Diagnosis: Urinary tract infection, site not specified;Constipation Presentation: 02/09 22:38 Presenting complaint: Patient states: lower left abd pain radiates to left flank with ak1 N/V that started today. Transition of care: patient was not received from another setting of care. Onset of symptoms was February 09, 2019. Risk Assessment: Do you want to hurt yourself or someone else? Patient reports no desire to harm self or others. Initial Sepsis Screen: Does the patient meet any 2 criteria? No. Patient's initial sepsis screen is negative. Does the patient have a suspected source of infection? No. Patient's initial sepsis screen is negative. Care prior to arrival: None. 22:38 Method Of Arrival: Ambulatory ak1 22:38 Acuity: EVA 3 ak1 Triage Assessment: 22:39 General: Appears in no apparent distress. Behavior is calm, cooperative. 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 - Social history:: Smoking status: Patient uses tobacco products, smokes one pack cigarettes per day. - Ebola Screening: : No symptoms or risks identified at this time. Screenin/06 00:08 Abuse screen: Denies threats or abuse. Nutritional screening: No deficits noted. bb Tuberculosis screening: No symptoms or risk factors identified. Fall Risk None identified. Assessment: 00:08 General: Appears in no apparent distress. uncomfortable, Behavior is calm, cooperative. bb Pain: Complains of pain in abdomen Pain radiates to back Pain currently is 7 out of 10 on a pain scale. Neuro: Level of Consciousness is awake, alert, obeys commands, Oriented to person, place, time, situation. Cardiovascular: Heart tones S1 S2 present Capillary refill < 3 seconds Patient's skin is warm and dry. Pulses are all present. Respiratory: Respiratory effort is even, unlabored, Respiratory pattern is regular. GI: Abdomen is obese, Bowel sounds present X 4 quads. Reports nausea, vomiting. Derm: Skin is pink, warm \T\ dry. Musculoskeletal: Circulation, motion, and sensation intact. 01:42 Reassessment: Patient is alert, oriented x 3, equal unlabored respirations, skin bb warm/dry/pink. Asael Ritter KEY WORKER notified pt states toradol did not help with pain. Patient states symptoms have not improved. 03:19 Reassessment: Patient is alert, oriented x 3, equal unlabored respirations, skin bb warm/dry/pink. pt requested RX for pain medication Ashley Ritter KEY WORKER notified no new RX was given pt verbalized understanding of and agrees to plan of care discharge instructions given pt ambulated with steady gait to exit Patient states feeling better. Patient states symptoms have improved. Vital Signs: 02/09 22:39 BP 147 / 89; Pulse 75; Resp 18; Temp 97.9; Pulse Ox 99% on R/A; Weight 108.86 kg (R); ak1 Height 5 ft. 7 in. (170.18 cm) (R); Pain 7/10; 02/10 00:48 BP 144 / 85; Pulse 65; Resp 18; Temp 98.5(O); Pulse Ox 99% on R/A; mw2 01:45 BP 137 / 82; Pulse 65; Resp 16; Pulse Ox 100% on R/A; Pain 7/10; bb 02:41 BP 129 / 76; Pulse 66; Resp 18; Temp 98.5(O); Pulse Ox 98% on R/A; mw2 03:22 BP 131 / 79; Pulse 73; Resp 16 S; Pulse Ox 99% on R/A; Pain 4/10; bb 02/09 22:39 Body Mass Index 37.59 (108.86 kg, 170.18 cm) ak1 ED Course: 02/09 22:18 Patient arrived in ED. cl3 22:39 Triage completed. ak1 22:39 Arm band placed on Patient placed in waiting room, Patient notified of wait time. ak1 22:53 Ashley Ritter, WERNER [facility]. kb 22:53 Zak Green MD is Attending Physician. kb 23:21 Arnaldo Means, KRISTIAN is Primary Nurse. rv 02/10 00:08 Patient has correct armband on for positive identification. Bed in low position. Call bb light in reach. 00:33 Initial lab(s) drawn, by me, sent to lab. Inserted saline lock: 22 gauge in left lt1 antecubital area, using aseptic technique. 01:43 CT Stone Protocol In Process Unspecified. EDMS 03:23 No provider procedures requiring assistance completed. IV discontinued, intact, bb bleeding controlled, No redness/swelling at site. Pressure dressing applied. Administered Medications: 00:57 Drug: TORadol - Ketorolac 15 mg Route: IVP; Site: left antecubital; bb 01:41 Follow up: Response: Pain is unchanged, physician notified bb 00:57 Drug: Zofran 4 mg Route: IVP; Site: left antecubital; bb 01:42 Follow up: Response: No adverse reaction bb 01:47 Drug: morphine 4 mg Route: IVP; Site: left antecubital; bb 01:47 Follow up: Response: RASS: Alert and Calm (0) bb 02:54 Follow up: Response: Pain is decreased; RASS: Drowsy (-1) bb 01:55 Drug: Rocephin 1 grams Route: IV; Rate: calculated rate; Site: left antecubital; bb 02:00 Follow up: IV Status: Completed infusion; IV Intake: 10ml bb Intake: 02:00 IV: 10ml; Total: 10ml. bb Outcome: 03:08 Discharge ordered by . kb 03:23 Discharged to home ambulatory. bb 03:23 Condition: stable 03:23 Discharge instructions given to patient, Instructed on discharge instructions, follow up and referral plans. medication usage, Demonstrated understanding of instructions, follow-up care, medications, Prescriptions given X 1. 03:24 Patient left the ED. bb Signatures: Dispatcher [employer] EDMS Ashley Ritter FNP-C FNP-Ckb Ballard, Brenda, RN RN bb Clair Mayer RN RN ak1 Trish Brower mw2 Arnalod Means, KRISTIAN RN Jing Harrisonah lt1 Maciel Clarke cl3
--- NOTE | 2019-02-10 03:10 | EDPHYS ---
Physician Documentation [facility] Name: Jo Stover Age: 33 yrs Sex: Female : 1985 Arrival Date: 02/09/2019 Time: 22:18 Bed 10 Private MD: ED Physician Zak Green HPI: 02/10 00:25 This 33 yrs old Female presents to ER via Ambulatory with complaints of kb Nausea/Vomiting, Abdominal Pain. 00:25 The patient presents with abdominal pain in the left lower quadrant. Onset: The kb symptoms/episode began/occurred this morning. The symptoms radiate to. Associated signs and symptoms: Pertinent positives: nausea and vomiting. The symptoms are described as constant. Modifying factors: The symptoms are alleviated by nothing, the symptoms are aggravated by nothing. Severity of pain: At its worst the pain was moderate in the emergency department the pain is unchanged. The patient has experienced similar episodes in the past, a few times, today's symptoms are similar, to previous kidney stone. The patient has not recently seen a physician. Pt reports left lower abd/groin pain that started this morning. States she started having nausea and vomiting afterwards. States the pain is also in her left flank and that there is more pressure when urinating. . 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 - Social history:: Smoking status: Patient uses tobacco products, smokes one pack cigarettes per day. - Ebola Screening: : No symptoms or risks identified at this time. ROS: 02/10 00:22 Constitutional: Negative for fever, chills, and weight loss, ENT: Negative for injury, kb pain, and discharge, Neck: Negative for injury, pain, and swelling, Cardiovascular: Negative for chest pain, palpitations, and edema, Respiratory: Negative for shortness of breath, cough, wheezing, and pleuritic chest pain, MS/Extremity: Negative for injury and deformity, Skin: Negative for injury, rash, and discoloration, Neuro: Negative for headache, weakness, numbness, tingling, and seizure. Abdomen/GI: Positive for abdominal pain, nausea and vomiting, Negative for diarrhea, constipation, abdominal cramps, abdominal distension, anorexia. : Positive for flank pain. Exam: 00:22 Constitutional: This is a well developed, well nourished patient who is awake, alert, kb and in no acute distress. Head/Face: Normocephalic, atraumatic. ENT: Nares patent. No nasal discharge, no septal abnormalities noted. Tympanic membranes are normal and external auditory canals are clear. Oropharynx with no redness, swelling, or masses, exudates, or evidence of obstruction, uvula midline. Mucous membranes moist. Neck: Trachea midline, no thyromegaly or masses palpated, and no cervical lymphadenopathy. Supple, full range of motion without nuchal rigidity, or vertebral point tenderness. No Meningismus. Chest/axilla: Normal chest wall appearance and motion. Nontender with no deformity. No lesions are appreciated. Cardiovascular: Regular rate and rhythm with a normal S1 and S2. No gallops, murmurs, or rubs. Normal PMI, no JVD. No pulse deficits. Respiratory: Lungs have equal breath sounds bilaterally, clear to auscultation and percussion. No rales, rhonchi or wheezes noted. No increased work of breathing, no retractions or nasal flaring. Back: No spinal tenderness. No costovertebral tenderness. Full range of motion. Skin: Warm, dry with normal turgor. Normal color with no rashes, no lesions, and no evidence of cellulitis. MS/ Extremity: Pulses equal, no cyanosis. Neurovascular intact. Full, normal range of motion. Neuro: Awake and alert, GCS 15, oriented to person, place, time, and situation. Cranial nerves II-XII grossly intact. Motor strength 5/5 in all extremities. Sensory grossly intact. Cerebellar exam normal. Normal gait. 00:22 Abdomen/GI: Inspection: abdomen appears normal, Bowel sounds: normal, in all quadrants, Palpation: soft, in all quadrants, moderate abdominal tenderness, in the left lower quadrant. Vital Signs: 02/09 22:39 BP 147 / 89; Pulse 75; Resp 18; Temp 97.9; Pulse Ox 99% on R/A; Weight 108.86 kg (R); ak1 Height 5 ft. 7 in. (170.18 cm) (R); Pain 7/10; 02/10 00:48 BP 144 / 85; Pulse 65; Resp 18; Temp 98.5(O); Pulse Ox 99% on R/A; mw2 01:45 BP 137 / 82; Pulse 65; Resp 16; Pulse Ox 100% on R/A; Pain 7/10; bb 02:41 BP 129 / 76; Pulse 66; Resp 18; Temp 98.5(O); Pulse Ox 98% on R/A; mw2 03:22 BP 131 / 79; Pulse 73; Resp 16 S; Pulse Ox 99% on R/A; Pain 4/10; bb 02/09 22:39 Body Mass Index 37.59 (108.86 kg, 170.18 cm) ak1 MDM: 02/09 23:37 Patient medically screened. kb 02/10 00:22 Data reviewed: vital signs, nurses notes. Data interpreted: Pulse oximetry: on room air kb is 99 %. Interpretation: normal. 03:06 Counseling: I had a detailed discussion with the patient and/or guardian regarding: the kb historical points, exam findings, and any diagnostic results supporting the discharge/admit diagnosis, lab results, radiology results, the need for outpatient follow up, a family practitioner, to return to the emergency department if symptoms worsen or persist or if there are any questions or concerns that arise at home. 03:19 ED course: Pt educated on use of tylenol and ibuprofen for pain due to narcotic pain kb medication making constipation worse. Pt upset that narcotic pain medication was not prescribed and left the ER. 08 00:10 Order name: Basic Metabolic Panel; Complete Time: 00:56 kb 02/10 00:10 Order name: CBC with Diff; Complete Time: 01:05 kb 02/10 00:10 Order name: Urine Microscopic Only; Complete Time: 01:51 kb 02/10 00:25 Order name: Urine Dipstick--Ancillary (enter results); Complete Time: 00:46 ar5 02/10 00:25 Order name: Urine --Ancillary (enter results); Complete Time: 00:46 ar5 02/10 01:52 Order name: Urine Culture EDMS 02/10 00:10 Order name: IV Saline Lock; Complete Time: 00:14 kb 02/10 00:10 Order name: Labs collected and sent; Complete Time: 00:14 kb 02/10 00:10 Order name: CT Stone Protocol kb 02/10 00:10 Order name: Urine Test (obtain specimen); Complete Time: 00:25 kb 02/10 00:10 Order name: Urine Dipstick-Ancillary (obtain specimen); Complete Time: 00:25 kb Administered Medications: 00:57 Drug: TORadol - Ketorolac 15 mg Route: IVP; Site: left antecubital; bb 01:41 Follow up: Response: Pain is unchanged, physician notified bb 00:57 Drug: Zofran 4 mg Route: IVP; Site: left antecubital; bb 01:42 Follow up: Response: No adverse reaction bb 01:47 Drug: morphine 4 mg Route: IVP; Site: left antecubital; bb 01:47 Follow up: Response: RASS: Alert and Calm (0) bb 02:54 Follow up: Response: Pain is decreased; RASS: Drowsy (-1) bb 01:55 Drug: Rocephin 1 grams Route: IV; Rate: calculated rate; Site: left antecubital; bb 02:00 Follow up: IV Status: Completed infusion; IV Intake: 10ml bb Disposition: 07:13 Co-signature as Attending Physician, Zak Green MD Available for consultation at ps1 all times. . Disposition: 02/10/19 03:08 Discharged to Home. Impression: Urinary tract infection, site not specified, Constipation. - Condition is Stable. - Discharge Instructions: Constipation, Adult, [id number], Urinary Tract Infection, Adult, [id number]. - Prescriptions for Macrobid 100 mg Oral Capsule - take 1 capsule by ORAL route every 12 hours for 10 days; 20 capsule. - Medication Reconciliation Form, Thank You Letter, Antibiotic Education, Prescription Opioid Use form. - Follow up: Emergency Department; When: As needed; Reason: Worsening of condition. Follow up: Private Physician; When: 2 - 3 days; Reason: Recheck today's complaints, Continuance of care, Re-evaluation by your physician. Signatures: Dispatcher [facility] Ashley Mccabe, ELI-C ELI-Giovanna Woods, RN RN bb Clair Mayer RN RN ak1 Zak Green MD MD ps1 Corrections: (The following items were deleted from the chart) 03:24 03:08 02/10/2019 03:08 Discharged to Home. Impression: Urinary tract infection, site bb not specified; Constipation. Condition is Stable. Forms are Medication Reconciliation Form, Thank You Letter, Antibiotic Education, Prescription Opioid Use. Follow up: Emergency Department; When: As needed; Reason: Worsening of condition. Follow up: Private Physician; When: 2 - 3 days; Reason: Recheck today's complaints, Continuance of care, Re-evaluation by your physician. kb
[2019-02-10 03:57] VITALS: TEMP 98.5
[2019-02-10 04:01] VITALS: BP 131/79; O2SAT 99
--- NOTE | 2019-02-10 10:04 | RAD REPORT ---
EXAM DESCRIPTION: CT - Stone Protocol - 02/10/2019 6:12 am CLINICAL HISTORY: The patient is 33 years old and is Female; FLANK PAIN TECHNIQUE: Axial computed tomography images of the abdomen and pelvis without intravenous contrast. Sagittal and coronal reformatted images were created and reviewed. This CT exam was performed usi ng one or more of the following dose reduction techniques: automated exposure control, adjustment o f the mA and/or kV according to patient size, and/or use of iterative reconstruction technique. COMPARISON: None. FINDINGS: LUNG BASES: Unremarkable. No mass. No consolidation. ABDOMEN: LIVER: Unremarkable. GALLBLADDER AND BILE DUCTS: Unremarkable. No calcified stones. No ductal dilation. PANCREAS: Unremarkable. No ductal dilation. SPLEEN: Unremarkable. No splenomegaly. ADRENALS: Unremarkable. No mass. KIDNEYS AND URETERS: Punctate nonobstructive stone in the left kidney. STOMACH AND BOWEL: Small to moderate stool burden. No obstruction. No mucosal thickening. PELVIS: APPENDIX: The appendix is seen and is within normal limits. BLADDER: Bladder is decompressed. No stones. REPRODUCTIVE: Unremarkable as visualized. ABDOMEN and PELVIS: INTRAPERITONEAL SPACE: Unremarkable. No free air. No significant fluid collection. BONES/JOINTS: No acute fracture. No dislocation. SOFT TISSUES: Unremarkable. VASCULATURE: Unremarkable. No abdominal aortic aneurysm. LYMPH NODES: Unremarkable. No enlarged lymph nodes. IMPRESSION: 1. No acute abdominal or pelvic abnormality. No obstructive uropathy. 2. Punctate nonobstructive stone in the left kidney. 3. Small to moderate stool burden. Correlate for constipation. Electronically signed by: Edgar Eden DO 02/10/2019 2:32 AM CDT Due to temporary technical issues with the PACS/Fluency reporting system, reports are being signed by the in house radiologist as a courtesy to ensure prompt reporting. The interpreting radiologist is f ramezly responsible for the content of the report.
== END 2019-02-10 03:24 | disposition home or self-care (01) ==
LOC: ER 22:14
DX: N39.0 Urinary tract infection, site not specified (principal); K59.00 Constipation, unspecified; F17.210 Nicotine dependence, cigarettes, uncomplicated; F41.9 Anxiety disorder, unspecified; J45.909 Unspecified asthma, uncomplicated
CPT/HCPCS: 87088; 85025; 87086; 80048; 36415; 81025; 76377; 74176; 96375; 96374; 99284; J0696; J2405; 81003; 81015